=== PATIENT | male | born 2005 | race Hispanic/Latino ===

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

== ENCOUNTER 2024-01-12 16:31 | Emergency (ER) | payer OTHER | END 2024-01-12 17:02 | disposition home or self-care (01) | LOC: MADERS 16:31 | DX: R19.7 Diarrhea, unspecified (principal) | CPT/HCPCS: 99283 ==